=== PATIENT | male | born 1995 | race African-American/Black ===

== ENCOUNTER 2018-04-30 20:34 | Inpatient (IN) | payer OTHER ==
[2018-04-30 21:02] VITALS: BMI 21.7
--- NOTE | 2018-04-30 21:07 | HP ---
COWS - Scale Resting Pulse: 0= VA 80 or Below Sweatin=Flushed/Facial Moisture Restless Observation: 1= Difficult to Sit Still Pupil Size: 1= Pupils >than Normal Bone or Joint Aches: 4=Acute Joint/Muscle Pain Runny Nose/ Eye Tearin= Runny Nose/Eyes GI Upset > 30mins: 3= Vomiting/Diarrhea (vomited x 1) Tremor Observation: 2= Slight Tremor Visible Yawning Observation: 0= None Anxiety or Irritability: 2=Irritable/Anxious Goose Flesh Skin: 0=Smooth Skin COWS Score: 17 CIWA Score - Admission Criteria [facility] Guidelines: Admission for Medically Managed Detox: Requires at least one of the followin. CIWA greater than 12 2. Seizures within the past 24 hours 3. Delirium tremens within the past 24 hours 4. Hallucinations within the past 24 hours 5. Acute intervention needed for co occurring medical disorder 6. Acute intervention needed for co occurring psychiatric disorder 7. Severe withdrawal that cannot be handled at a lower level of care (continued vomiting, continued diarrhea, abnormal vital signs) requiring intravenous medication and/or fluids 8. Admission ROS [facility] Chief Complaint: Alcohol withdrawal symptoms Allergies/Adverse Reactions: Allergies Allergy/AdvReac Type Severity Reaction Status Date / Time No Known Allergies Allergy Verified 04/30/18 21:05 History of Present Illness: 22 years old male with 6 years of alcohol dependence is seeking admission to detox. Patient denies past medical history, suicide attempt and suicidal ideation at this time. Exam Limitations: No Limitations - Ebola screening Have you traveled outside of the country in the last 21 days: No Have you had contact with anyone from an Ebola affected area: No Have you been sick,other than usual withdrawal symptoms: No Do you have a fever: No - Review of Systems Constitutional: Loss of Appetite, Malaise, Night Sweats, Changes in sleep EENT: reports: No Symptoms Reported Respiratory: reports: No Symptoms reported Cardiac: reports: No Symptoms Reported GI: reports: Nausea, Poor Appetite, Poor Fluid Intake, Abdominal cramping : reports: No Symptoms Reported Musculoskeletal: reports: Back Pain, Muscle Weakness Integumentary: reports: Dryness Neuro: reports: Tremors Endocrine: reports: No Symptoms Reported Hematology: reports: No Symptoms Reported Psychiatric: reports: Mood/Affect Appropiate, Orientated x3, Anxious Other Systems: Reviewed and Negative Patient History - Patient Medical History Hx Anemia: No Hx Asthma: No Hx Chronic Obstructive Pulmonary Disease (COPD): No Hx Cancer: No Hx Cardiac Disorders: No Hx Congestive Heart Failure: No Hx Hypertension: No Hx Hypercholesterolemia: No Hx Pacemaker: No HX Cerebrovascular Accident: No Hx Seizures: No Hx Dementia: No Hx Diabetes: No Hx Gastrointestinal Disorders: No Hx Liver Disease: No Hx Genitourinary Disorders: No Hx Sexually Transmitted Disorders: No Hx Renal Disease (ESRD): No Hx Thyroid Disease: No Hx Human Immunodeficiency Virus (HIV): No (Negative 2014) Hx Hepatitis C: No Hx Depression: No Hx Suicide Attempt: No (Denies suicide attempt/ [id number] ideation at this time) Hx Bipolar Disorder: No Hx Schizophrenia: No - Patient Surgical History Past Surgical History: No - PPD History Previous Implant?: Yes Documented Results: Negative w/o proof Implanted On Prior [facility] Admission?: No PPD to be Administered?: Yes - Reproductive History Patient is a Female of Child Bearing Age (11 -55 yrs old): No (ZARINA) - Smoking Cessation Smoking history: Current every day smoker Have you smoked in the past 12 months: Yes Aproximately how many cigarettes per day: 20 Hx Chewing Tobacco Use: No Initiated information on smoking cessation: Yes 'Breaking Loose' booklet given: 04/30/18 - Substance & Tx. History Hx Alcohol Use: Yes Hx Substance Use: Yes Substance Use Type: Alcohol, Cocaine Hx Substance Use Treatment: No - Substances Abused Alcohol Route: Oral Frequency: Daily Amount used: [place] - 1/2 gallon or a fifth Admission Physical Exam BHS - Vital Signs Vital Signs: Vital Signs - 24 hr 04/30/18 20:49 Temperature 96.1 F L Pulse Rate 62 Respiratory 18 Rate Blood Pressure 131/71 BHS Breath Alcohol Content Breath Alcohol Content: 0.188 Urine Drug Screen - Results Drug Screen Negative: No Urine Drug Screen Results: THC-Marijuana, BOB-Cocaine
[2018-04-30] MEDS ORDERED: MAG HYDROX/AL HYDROX/SIMETH 30 ML UNIT-DOSE CUP PO PRN (21:17)
[2018-04-30] MEDS ORDERED: IBUPROFEN 400 MG TABLET (FP) PO PRN (21:17)
[2018-04-30] MEDS ORDERED: ACETAMINOPHEN 325 MG TABLET (FP) PO PRN (21:17)
[2018-04-30] MEDS ORDERED: MENTHOL/PHENOL 1 EACH UD MM PRN (21:17)
[2018-04-30] MEDS ORDERED: MAGNESIUM HYDROX 2400MG/30ML ORAL SUSPENSION 30 ML CUP PO PRN (21:17)
[2018-04-30] MEDS ORDERED: guaiFENesin/D-METHORPHAN HB 10 ML UNIT-DOSE CUPS PO PRN (21:17)
[2018-04-30] MEDS ORDERED: MAGNESIUM CITRATE 300 ML BOTTLE PO PRN (21:17)
[2018-04-30] MEDS ORDERED: LOPERAMIDE HCL 2 MG CAPSULE PO PRN (21:17)
[2018-04-30] MEDS ORDERED: P-EPHED 60MG/TRIPROLIDI 2.5MG TABLET PO PRN (21:17)
[2018-04-30] MEDS ORDERED: MELATONIN 5 MG TABLETS PO PRN (22:00)
[2018-04-30] MEDS: chlordiazePOXIDE HCL 25 MG CAPSULE PO SCH (23:26)
[2018-04-30] MEDS: THIAMINE HCL 100 MG TABLET (FP) PO SCH (23:26)
[2018-04-30] MEDS: NICOTINE 14 MG/24 HOURS TOPICAL PATCH TD SCH (23:27)
[2018-05-01] MEDS: chlordiazePOXIDE HCL 25 MG CAPSULE PO SCH ×4 (05:33→22:14)
[2018-05-01 10:04] LABS: HEMATOCRIT 42.6 % (35.4-49); HEMOGLOBIN 13.5 GM/dL (11.7-16.9); MCHC 31.7 g/dl (32.0-35.9); MEAN CELL VOLUME 81.9 fl (80-96); PLATELET COUNT 279 K/MM3 (134-434); RDW 13.7 % (11.9-15.9); WHITE BLOOD COUNT 3.7 K/mm3 (4.0-10.0)
[2018-05-01] MEDS: PRENATAL VITAMINS W/ FOLIC ACID TABLET (FP) PO SCH (10:08)
[2018-05-01] MEDS: NICOTINE 14 MG/24 HOURS TOPICAL PATCH TD SCH (10:10)
[2018-05-01 11:40] LABS: ALBUMIN 3.9 g/dl (3.4-5.0); ALK PHOS 65 U/L (45-117); ANION GAP 11 MMOL/L (8-16); BILIRUBIN,TOTAL 0.6 mg/dL (0.2-1); BLOOD UREA NITROGEN 12 mg/dL (7-18); CALCIUM 8.8 mg/dL (8.5-10.1); CHLORIDE 106 mmol/L (98-107); CO2 23 mmol/L (21-32); CREATININE 1.2 mg/dL (0.55-1.3); GLUCOSE,RANDOM 85 mg/dL (74-106); POTASSIUM 4.2 mmol/L (3.5-5.1); SGOT/AST 19 U/L (15-37); SGPT/ALT 18 U/L (13-61); SODIUM 140 mmol/L (136-145); TOT PROT 7.4 g/dl (6.4-8.2)
--- NOTE | 2018-05-01 11:59 | PN ---
S CIWA - CIWA Score Nausea/Vomitin Muscle Tremors: 2 Anxiety: 3 Agitation: 1-Slight > Activity Paroxysmal Sweats: 3 Orientation: 0-Oriented Tacttile Disturbances: 1-Very Mild Itch/Numbness Auditory Disturbances: 0-None Visual Disturbances: 0-None Headache: 0-None Present CIWA-Ar Total Score: 12 BHS Progress Note (SOAP) Subjective: interrupted sleep, sweats, decreased appetite. Objective: 05/01/18 11:58 Vital Signs Temperature 99.7 F H 05/01/18 09:06 Pulse Rate 128 H 05/01/18 09:06 Respiratory Rate 20 05/01/18 09:06 Blood Pressure 116/59 L 05/01/18 09:06 O2 Sat by Pulse Oximetry (%) Vital Signs Temperature 99.7 F H 05/01/18 09:06 Pulse Rate 128 H 05/01/18 09:06 Respiratory Rate 20 05/01/18 09:06 Blood Pressure 116/59 L 05/01/18 09:06 O2 Sat by Pulse Oximetry (%) Laboratory Tests 05/01/18 05/01/18 05/01/18 07:00 07:00 07:00 WBC 3.7 L RBC 5.20 Hgb 13.5 Hct 42.6 MCV 81.9 MCH 26.0 MCHC 31.7 L RDW 13.7 Plt Count 279 MPV 8.0 Sodium 140 Potassium 4.2 Chloride 106 Carbon Dioxide 23 Anion Gap 11 BUN 12 Creatinine 1.2 Creat Clearance w eGFR > 60 Random Glucose 85 Calcium 8.8 Total Bilirubin 0.6 AST 19 ALT 18 Alkaline Phosphatase 65 Total Protein 7.4 Albumin 3.9 RPR Titer Nonreactive pt aox3 in nad ambulating 05/01/18 12:04 repeat pulse 100/m 05/01/18 12:09 Assessment: 05/01/18 12:01 withdrawal sx's Plan: cont detox increase fluids
[2018-05-01] MEDS: THIAMINE HCL 100 MG TABLET (FP) PO SCH (22:14)
[2018-05-02] MEDS: chlordiazePOXIDE HCL 25 MG CAPSULE PO SCH ×3 (05:47→17:27)
[2018-05-02] MEDS: NICOTINE 14 MG/24 HOURS TOPICAL PATCH TD SCH (10:09)
[2018-05-02] MEDS: PRENATAL VITAMINS W/ FOLIC ACID TABLET (FP) PO SCH (10:09)
[2018-05-02] MEDS ORDERED: hydrOXYzine PAMOATE 50 MG CAPSULE (FP) PO PRN (14:07)
--- NOTE | 2018-05-02 14:11 | PN ---
S CIWA - CIWA Score Nausea/Vomitin-No Nausea/No Vomiting Muscle Tremors: 4-Moderate,w/Arms Extend Anxiety: 3 Agitation: 3 Paroxysmal Sweats: 3 Orientation: 0-Oriented Tacttile Disturbances: 0-None Auditory Disturbances: 0-None Visual Disturbances: 0-None Headache: 0-None Present CIWA-Ar Total Score: 13 BHS Progress Note (SOAP) Subjective: agitation sweats shakes interrupted sleep body aches irritable Objective: 05/02/18 14:09 Vital Signs Temperature 98.2 F 05/02/18 14:00 Pulse Rate 94 H 05/02/18 14:00 Respiratory Rate 18 05/02/18 14:00 Blood Pressure 152/79 05/02/18 14:00 O2 Sat by Pulse Oximetry (%) Laboratory Tests 05/01/18 05/01/18 05/01/18 07:00 07:00 07:00 WBC 3.7 L RBC 5.20 Hgb 13.5 Hct 42.6 MCV 81.9 MCH 26.0 MCHC 31.7 L RDW 13.7 Plt Count 279 MPV 8.0 Sodium 140 Potassium 4.2 Chloride 106 Carbon Dioxide 23 Anion Gap 11 BUN 12 Creatinine 1.2 Creat Clearance w eGFR > 60 Random Glucose 85 Calcium 8.8 Total Bilirubin 0.6 AST 19 ALT 18 Alkaline Phosphatase 65 Total Protein 7.4 Albumin 3.9 RPR Titer Nonreactive aaox3 ambulating no acute distress Assessment: 05/02/18 14:10 withdrawal sx Plan: continue detox increase fluids visitril 50mg prn
[2018-05-02] MEDS: chlordiazePOXIDE HCL 25 MG CAPSULE PO PRN ×2 (14:22→20:05)
[2018-05-02] MEDS: NICOTINE POLACRILEX 2 MG GUM BC PRN ×2 (17:29→22:08)
[2018-05-02] MEDS: THIAMINE HCL 100 MG TABLET (FP) PO SCH (22:07)
[2018-05-02] MEDS: chlordiazePOXIDE 5 MG CAPSULE PO SCH (22:07)
[2018-05-03] MEDS: chlordiazePOXIDE 5 MG CAPSULE PO SCH ×2 (05:41→10:04)
[2018-05-03 09:02] VITALS: BP 100/53; PULSE 75; TEMP 97.9
[2018-05-03] MEDS: PRENATAL VITAMINS W/ FOLIC ACID TABLET (FP) PO SCH (10:03)
[2018-05-03] MEDS: NICOTINE 14 MG/24 HOURS TOPICAL PATCH TD SCH (10:03)
--- NOTE | 2018-05-03 10:19 | PN ---
BHS Progress Note (SOAP) Subjective: sweats, shakes, anxiety , wants to see pysch because of anxiety and anger issues Objective: 05/03/18 10:18 Vital Signs Temperature 97.9 F 05/03/18 09:02 Pulse Rate 75 05/03/18 09:02 Respiratory Rate 16 05/03/18 09:02 Blood Pressure 100/53 L 05/03/18 09:02 O2 Sat by Pulse Oximetry (%) Laboratory Tests 05/01/18 05/01/18 05/01/18 07:00 07:00 07:00 WBC 3.7 L RBC 5.20 Hgb 13.5 Hct 42.6 MCV 81.9 MCH 26.0 MCHC 31.7 L RDW 13.7 Plt Count 279 MPV 8.0 Sodium 140 Potassium 4.2 Chloride 106 Carbon Dioxide 23 Anion Gap 11 BUN 12 Creatinine 1.2 Creat Clearance w eGFR > 60 Random Glucose 85 Calcium 8.8 Total Bilirubin 0.6 AST 19 ALT 18 Alkaline Phosphatase 65 Total Protein 7.4 Albumin 3.9 RPR Titer Nonreactive pt aox3 in nad ambulating Assessment: 05/03/18 10:18 withdrawal sx's anxiety Plan: cont. detox increase fluids pysch eval
--- NOTE | 2018-05-03 11:55 | DS ---
[facility] Detox Discharge Summary Admission Date: 04/30/18 Discharge Date: 05/03/18 - History Present History: Alcohol Dependence, Cannabis Dependence, Cocaine Dependence, Sedative Dependence - Physical Exam Results Vital Signs: Vital Signs Temperature 97.9 F 05/03/18 09:02 Pulse Rate 75 05/03/18 09:02 Respiratory Rate 16 05/03/18 09:02 Blood Pressure 100/53 L 05/03/18 09:02 O2 Sat by Pulse Oximetry (%) - Treatment Hospital Course: Detox Protocol Followed - Medication Discharge Medications: Ambulatory Orders NK [No Known Home Medication] 04/30/18 - Diagnosis (1) Chronic alcoholism Current Visit: Yes Status: Chronic (2) Xanax use disorder, mild, abuse Current Visit: Yes Status: Chronic (3) Cocaine dependence Current Visit: Yes Status: Acute Qualifiers: Substance use status: uncomplicated Qualified Code(s): F14.20 - Cocaine dependence, uncomplicated (4) Marijuana abuse Current Visit: Yes Status: Chronic - AMA Did Patient Leave Against Medical Advice: No (Involuntary discharge)
[2018-05-03] MEDS ORDERED: chlordiazePOXIDE HCL 10 MG CAPSULE PO SCH (23:00)
== END 2018-05-03 11:15 | disposition left against medical advice (07) | DRG 774 ==
LOC: YASAS 20:34 → Y6N 22:03
PROC: HZ2ZZZZ Detoxification Services for Substance Abuse Treatment (ICD-10-PCS; principal; 2018-04-30)
DX: F10.230 Alcohol dependence with withdrawal, uncomplicated (principal); F14.20 Cocaine dependence, uncomplicated; F13.10 Sedative, hypnotic or anxiolytic abuse, uncomplicated; F12.10 Cannabis abuse, uncomplicated; F17.210 Nicotine dependence, cigarettes, uncomplicated; F41.9 Anxiety disorder, unspecified; F91.8 Other conduct disorders; Z91.19 Patient's noncompliance with other medical treatment and regimen
CPT/HCPCS: 36415; 80053; 85027; 86593